=== PATIENT | female | born 1960 | race Caucasian/White ===

== ENCOUNTER 2017-05-18 11:16 | Emergency (ER) | payer BC, OTHER ==
[2017-05-18] MEDS ORDERED: Aspirin 81 MG Tab.Chew PO ONE (11:51)
--- NOTE | 2017-05-18 11:51 | EDM.PDOC ---
ED HPI GENERAL MEDICAL PROBLEM - General Chief Complaint: Respiratory Problem Stated Complaint: SOB/CHEST PAIN Time Seen by Provider: 05/18/17 11:43 Source of Information: Reports: Patient History Limitations: Reports: No Limitations - History of Present Illness INITIAL COMMENTS - FREE TEXT/NARRATIVE: 56-year-old female presents to the ED with reported central chest pressure or squeezing discomfort like a small child sitting on her chest radiating through to her infrascapular area and mid back 2 and half days. Associated dyspnea. She reports she did wake up several times last night with mild dyspnea. She denies cough or sputum production but is just getting over an upper respiratory tract infection. She still has sinus congestion and mild postnasal drip. Appetite has remained poor since she's had upper respiratory tract infection. She has a history of ulcerative colitis and has intermittent diarrhea problems but nothing terrible as of late. Daughter were aware of any definitive fever chills she feels quite warm to palpation today. Her ECG done by triage nurse reveals sinus rhythm at 87/m. There is Q-wave in V1 and V2 and near Q-wave in V3 suggesting an old anteroseptal myocardial infarction. Patient has no history of SC. There is also noted ST segment depression V4 V5 and V6. Therefore ischemia is a concern. She is down to smoking 5-6 cigarettes a day but has a 30- pack-year history. Onset: Gradual Onset Date: 05/16/17 Duration: Day(s): Location: Reports: Chest (Central chest pressure squeezing discomfort rating to to her mid back 2 days.) Quality: Reports: Ache, Pressure Severity: Moderate (Rates her current pressure discomfort as a 5 out of 10.) Improves with: Reports: None Worsens with: Reports: Other (Not necessarily worse with movement.) Context: Denies: Activity, Exercise, Sick Contact, Trauma, Other Associated Symptoms: Reports: Chest Pain, Cough (Occasional cough which appears to be due to ), cough w sputum (postnasal drip.), Loss of Appetite, Malaise, Shortness of Breath, Weakness. 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 Less since she's been recently ill.) Gastrointestinal History: Reports: GERD (Has to use Tums and Rolaids intermittently.) Musculoskeletal History: Reports: Osteoarthritis Social & Family History - Tobacco Use Smoking Status *Q: Current Every Day Smoker Tobacco Use Within Last Twelve Months: Cigarettes Years of Tobacco use: 30 - Living Situation & Occupation Living situation: Reports: Occupation: Unemployed ED ROS GENERAL - Review of Systems Review Of Systems: See Below Constitutional: Reports: Fever, Malaise, Weakness, Fatigue, Decreased Appetite. Denies: Weight Loss Respiratory: Reports: Shortness of Breath, Cough (Occasional cough). Denies: Wheezing, Pleuritic Chest Pain Cardiovascular: Reports: Chest Pain, Dyspnea on Exertion. Denies: Blood Pressure Problem (See history of present illness), Claudication, Edema, Lightheadedness, Orthopnea Endocrine: Reports: Fatigue GI/Abdominal: Reports: Other (Has a history of ulcerative colitis but no severe diarrhea as of recent.) : Reports: No Symptoms Musculoskeletal: Reports: No Symptoms Skin: Reports: No Symptoms Neurological: Reports: No Symptoms Psychiatric: Reports: No Symptoms Hematologic/Lymphatic: Reports: No Symptoms Immunologic: Reports: No Symptoms ED EXAM, GENERAL - Physical Exam Exam: See Below Exam Limited By: No Limitations General Appearance: Alert, WD/WN, Anxious, Mild Distress Eye Exam: Bilateral Eye: Normal Inspection Ears: Normal TMs Throat/Mouth: Normal Inspection, Normal Lips, Normal Teeth, Normal Oropharynx Head: Atraumatic, Normocephalic Neck: Normal Inspection, Supple, Non-Tender, Full Range of Motion. No: Lymphadenopathy (L), Lymphadenopathy (R) Respiratory/Chest: No Respiratory Distress, Lungs Clear, Normal Breath Sounds, No Accessory Muscle Use, Decreased Breath Sounds (Mildly decreased breath sounds to both posterior lung simeon.). No: Rhonchi, Wheezing Cardiovascular: Normal Peripheral Pulses, Regular Rate, Rhythm, No Murmur, No Rub. No: No Edema, No Gallop Peripheral Pulses: 2+: Posterior Tibial (L), Posterior Tibial (R), Dorsalis Pedis (L), Dorsalis Pedis (R) GI/Abdominal: Normal Bowel Sounds, Soft, Non-Tender, No Organomegaly, No Abnormal Bruit, No Mass, Pelvis Stable, Other (No surgical scars) Back Exam: Normal Inspection, Full Range of Motion. No: CVA Tenderness (L), CVA Tenderness (R) Extremities: Normal Inspection, Normal Range of Motion, Non-Tender, No Pedal Edema, Normal Capillary Refill Neurological: Alert, Oriented, CN II-XII Intact, Normal Cognition, Normal Gait Psychiatric: Normal Affect, Normal Mood Skin Exam: Warm, Dry, Intact, Normal Color, No Rash EKG INTERPRETATION EKG Date: 05/18/17 Time: 11:25 Rhythm: NSR Rate (Beats/Min): 87 [place]: Normal P-Wave: Enlarged (Consider possible left atrial hypertrophy.) QRS: Other (Q waves V1 and V2 and near Q-wave in V3 suggesting old anteroseptal myocardial infarction. Patient has no history of this.) ST-T: Depressed (ST segment depression V4 V5 and V6. Not rule out ischemia.) QT: Normal EKG Interpretation Comments: Abnormal ECG. Course - Vital Signs Last Recorded V/S: Last Vital Signs Temp 37.6 C 05/18/17 11:27 Pulse 89 05/18/17 11:27 Resp 16 05/18/17 11:27 BP 140/83 05/18/17 11:27 Pulse Ox 99 05/18/17 13:26 - Orders/Labs/Meds Orders: Active Orders 24 hr Category Date Time Status EKG Documentation Completion [RC] STAT Care 05/18/17 11:52 Active RT Aerosol Therapy [RC] ASDIRECTED Care 05/18/17 13:26 Active Labs: Laboratory Tests 05/18/17 05/18/17 05/18/17 Range/Units 12:04 12:04 12:04 WBC 6.73 (3.98-10.04) K/mm3 RBC 4.33 (3.98-5.22) M/mm3 Hgb 13.0 (11.2-15.7) gm/L Hct 39.3 (34.1-44.9) % MCV 90.8 (79.4-94.8) fl MCH 30.0 (25.6-32.2) pg MCHC 33.1 (32.2-35.5) g/dl RDW Std Deviation 42.7 (36.4-46.3) fL Plt Count 333 (182-369) K/mm3 MPV 9.9 (9.4-12.3) fl Neutrophils % (Manual) 55 (40-60) % Band Neutrophils % 0 (0-10) % Lymphocytes % (Manual) 31 (20-40) % Atypical Lymphs % 0 % Monocytes % (Manual) 12 H (2-10) % Eosinophils % (Manual) 2 (0.7-5.8) % Basophils % (Manual) 0 L (0.1-1.2) Platelet Estimate Adequate RBC Morph Comment Normal PT 10.7 (8.0-13.0) SECONDS INR 1.00 D-Dimer, Quantitative (0.19-0.59) mg/L Sodium 143 (136-145) mEq/L Potassium 3.6 (3.5-5.1) mEq/L Chloride 107 (98-107) mEq/L Carbon Dioxide 23 (21-32) mEq/L Anion Gap 16.6 H (5-15) BUN 20 H (7-18) mg/dL Creatinine 0.8 (0.55-1.02) mg/dL Est Cr Clr Drug Dosing 81.10 mL/min Estimated GFR (MDRD) > 60 (>60) mL/min BUN/Creatinine Ratio 25.0 H (14-18) Glucose 93 (74-106) mg/dL Calcium 9.4 (8.5-10.1) mg/dL Magnesium 2.0 (1.8-2.4) mg/dl Total Bilirubin 0.4 (0.2-1.0) mg/dL AST 21 (15-37) U/L ALT 27 (14-59) U/L Alkaline Phosphatase 65 (46-116) U/L CK-MB (CK-2) 1.5 (0-3.6) ng/ml Troponin I < 0.017 (0.00-0.056) ng/mL C-Reactive Protein < 0.2 (<1.0) mg/dL NT-Pro-B Natriuret Pep (0-125) pg/mL Total Protein 7.1 (6.4-8.2) g/dl Albumin 3.9 (3.4-5.0) g/dl Globulin 3.2 gm/dL Albumin/Globulin Ratio 1.2 (1-2) Urine Color (Yellow) Urine Appearance (Clear) Urine pH (5.0-8.0) Ur Specific [place]ro[place] (1.005-1.030) Urine Protein (Negative) Urine Glucose (UA) (Negative) Urine Ketones (Negative) Urine Occult Blood (Negative) Urine Nitrite (Negative) Urine Bilirubin (Negative) Urine Urobilinogen (0.2-1.0) Ur Leukocyte Esterase (Negative) 05/18/17 05/18/17 05/18/17 Range/Units 12:04 12:04 13:30 WBC (3.98-10.04) K/mm3 RBC (3.98-5.22) M/mm3 Hgb (11.2-15.7) gm/L Hct (34.1-44.9) % MCV (79.4-94.8) fl MCH (25.6-32.2) pg MCHC (32.2-35.5) g/dl RDW Std Deviation (36.4-46.3) fL Plt Count (182-369) K/mm3 MPV (9.4-12.3) fl Neutrophils % (Manual) (40-60) % Band Neutrophils % (0-10) % Lymphocytes % (Manual) (20-40) % Atypical Lymphs % % Monocytes % (Manual) (2-10) % Eosinophils % (Manual) (0.7-5.8) % Basophils % (Manual) (0.1-1.2) Platelet Estimate RBC Morph Comment PT (8.0-13.0) SECONDS INR D-Dimer, Quantitative 0.39 (0.19-0.59) mg/L Sodium (136-145) mEq/L Potassium (3.5-5.1) mEq/L Chloride (98-107) mEq/L Carbon Dioxide (21-32) mEq/L Anion Gap (5-15) BUN (7-18) mg/dL Creatinine (0.55-1.02) mg/dL Est Cr Clr Drug Dosing mL/min Estimated GFR (MDRD) (>60) mL/min BUN/Creatinine Ratio (14-18) Glucose (74-106) mg/dL Calcium (8.5-10.1) mg/dL Magnesium (1.8-2.4) mg/dl Total Bilirubin (0.2-1.0) mg/dL AST (15-37) U/L ALT (14-59) U/L Alkaline Phosphatase (46-116) U/L CK-MB (CK-2) (0-3.6) ng/ml Troponin I (0.00-0.056) ng/mL C-Reactive Protein (<1.0) mg/dL NT-Pro-B Natriuret Pep 191 H (0-125) pg/mL Total Protein (6.4-8.2) g/dl Albumin (3.4-5.0) g/dl Globulin gm/dL Albumin/Globulin Ratio (1-2) Urine Color Yellow (Yellow) Urine Appearance Clear (Clear) Urine pH 7.5 (5.0-8.0) Ur Specific [place] 1.015 (1.005-1.030) Urine Protein Negative (Negative) Urine Glucose (UA) Negative (Negative) Urine Ketones 1+ H (Negative) Urine Occult Blood Negative (Negative) Urine Nitrite Negative (Negative) Urine Bilirubin Negative (Negative) Urine Urobilinogen 0.2 (0.2-1.0) Ur Leukocyte Esterase Negative (Negative) Meds: Medications Discontinued Medications Generic Name Dose Route Start Last Admin Trade Name Freq PRN Reason Stop Dose Admin Albuterol/Ipratropium 3 ml 05/18/17 13:26 05/18/17 14:06 Duoneb 3.0-0.5 Mg/3 Ml NEB 05/18/17 13:27 3 ml ONETIME ONE Administration Aspirin 324 mg 05/18/17 11:51 05/18/17 11:56 Aspirin PO 05/18/17 11:52 324 mg ONETIME ONE Administration Sodium Chloride 1,000 mls @ 125 mls/hr 05/18/17 12:00 05/18/17 12:00 Normal Saline IV 125 mls/hr ASDIRECTED TONO Administration Nitroglycerin/Dextrose 25 mg in 250 mls @ 6 mls/hr 05/18/17 12:00 Nitroglycerin 25 Mg/D5w 250 Ml IV ASDIRECTED TONO 10 MCG/MIN Nitroglycerin/Dextrose 25 mg in 250 mls @ 6 mls/hr 05/18/17 11:57 05/18/17 12 :02 Nitroglycerin 25 Mg/D5w 250 Ml IV 05/20/17 05:36 10 mcg/min ONETIME ONE 6 mls/hr Administration 10 MCG/MIN Methylprednisolone Sodium Succinate 125 mg 05/18/17 13:27 05/18/17 13:51 Solu-Medrol IVPUSH 05/18/17 13:28 125 mg ONETIME ONE Administration - Radiology Interpretation Free Text/Narrative:: 56-year-old female presents to the ED primarily due to central chest discomfort reported to be a heaviness squeeze type discomfort rating to to her infrascapular area in her back 2-3 days. Her ECG done by the triage nurse suggested possible old anteroseptal myocardial infarct for which the patient has no history of. It also suggested ST segment depression V4 to V6 suggestive of possible ischemia. She will therefore be treated as if she is a myocardial infarction until proven otherwise. Given 324 mg of aspirin chewed. Nitro drip at 10 mcg/m. Routine labs to be done to include cardiac markers. - Re-Assessments/Exams Free Text/Narrative Re-Assessment/Exam: 05/18/17: 12:30: Patient states there perhaps is a mild relief of the central chest discomfort on the nitro drip but still rates it as 4 out of 10. 05/18/17 13:20 Labs reveal a white count of 6.73 likely normal. 55% neutrophils no bands reported. Hemoglobin is 13.0 with hematocrit of 39.3. Bili count 333,000. ETT is 10.7 with an INR of 1.00. D-dimer is normal at 0.39. Sodium is 143 with potassium of 3.6. Portable 07 with a bicarbonate of 23. And a gap is mildly elevated at 16.6. B1 is 20 with a creatinine of 0.8. Glucose is 93 with calcium 9.4. Magnesium normal at 2.0. Bilirubin normal at 0.4. Liver function normal CK-MB fraction 1.5 with a troponin I of less than 0.017. C- reactive protein is less than 0.2. BNP is 191 minimally elevated. 05/18/17 13:23 nitro drip will be discontinued since her cardiac markers are normal with a history of chest pain 2 days. I will try her on a DuoNeb treatment to see if this alleviates her discomfort. Ever dose of steroid 125 mg IV mental IV. 05/18/17 14:24 urinalysis is normal as well. Plan will be to discharge her home on antibiotics for suspect sinus infection and bronchitis. Will use Levaquin 500 mg once daily for 10 days. Short course of prednisone 20 mg a.m. and p.m. for 5 days and once in the morning for another 5 days. I suspect her anterior chest discomfort is respiratory or bronchospastic in origin. 05/18/17 14:51 will be discharged with a nebulizer machine to use DuoNeb every 8 hours for the next week to 10 days. Advise follow-up in the clinic in 5 days time. Departure - Departure Time of Disposition: 14:51 Disposition: Home, Self-Care 01 Condition: Fair Clinical Impression: Bronchitis, Non-cardiac chest pain Sinusitis Qualifiers: Sinusitis location: unspecified location Chronicity: acute Recurrence: not specified as recurrent Qualified Code(s): J01.90 - Acute sinusitis, unspecified - Discharge Information Prescriptions: Albuterol/Ipratropium [DuoNeb 3.0-0.5 MG/3 ML] 3 ml .XX Q6H PRN #45 neb PRN Reason: cough/chest heaviness Levofloxacin [Levaquin] 500 mg PO DAILY #10 tab predniSONE [Deltasone] 20 mg PO ASDIRECTED #15 tablet Instructions: Sinusitis, Adult, [id number], Acute Bronchitis, Adult, Easy-to- Read, Nonspecific Chest Pain, [id number] Referrals: PCP,None [Primary Care Provider] - Forms: ED Department Discharge Additional Instructions: Evaluation in the emergency room today in regards to central chest discomfort like a heaviness sitting intermittent chest for the last 2 days. She waited recent upper respiratory tract infection with I suspect residual sinusitis and post nasal drip. Continued cough. Complete workup was carried out as you ECG suggested possibility of an old heart attack. However today's lab work did not show any evidence of heart related illness. It does show mild signs of infection with elevated CRP etc. There is no pneumonia on the chest x-ray. Clinically you have bronchitis and I suspect a component of bronchospasm which means tightness of the major bronchial tubes which is causing her chest discomfort. To this and drip started initially as per protocol for chest pain did not help the pain at all. He did get some relief from nebulizer treatment. Therefore my suggestion for treatment at home is to use the nebulizer every 6-8 hours as needed for relief of chest discomfort and/or wheezing. May use this for the next 7-10 days but then you should be better. Prednisone is 20 mg in the morning and supper time for 5 days then once daily in the morning for another 5 days. Antibiotic is to be Levaquin 500 milligrams once daily for 10 days starting today. Suggest follow-up with personal care physician in 10 days' time you are doing. I also recommend that you arrange to see a tool repairer bench in consultation due to your abnormal appearing ECG. I believe an echocardiogram and likely at the ECG stress test at a minimum are required. I believe Dr. Sagastume-- tool repairer bench is coming out from [facility] in [facility] to the [facility] and possibly you could see him here. - My Orders Last 24 Hours: My Active Orders 05/18/17 11:52 EKG Documentation Completion [RC] STAT 05/18/17 13:26 RT Aerosol Therapy [RC] ASDIRECTED - Assessment/Plan Last 24 Hours: My Active Orders 05/18/17 11:52 EKG Documentation Completion [RC] STAT 05/18/17 13:26 RT Aerosol Therapy [RC] ASDIRECTED
[2017-05-18] MEDS ORDERED: Nitroglycerin/D5W 25 MG/250 ML BOTTLE IV ONE (11:57)
[2017-05-18] MEDS ORDERED: Sodium Chloride 0.9% 1,000 ML IV SCH (12:00)
[2017-05-18] MEDS ORDERED: Nitroglycerin/D5W 25 MG/250 ML BOTTLE IV SCH (12:00)
--- NOTE | 2017-05-18 12:44 | CR ---
Chest: Portable view of the chest was obtained. Comparison: Prior chest x-ray of 09/05/12. Heart size is normal. Tortuous thoracic aorta is seen. Lungs are clear but somewhat hyperinflated. Bony structures are grossly intact. Impression: 1. Probable emphysematous change. Nothing acute is seen on portable chest x-ray. Diagnostic code #2
[2017-05-18] MEDS ORDERED: Albuterol/Ipratropium 3.0-0.5 MG/3 ML Neb Soln NEB ONE (13:26)
[2017-05-18] MEDS ORDERED: methylPREDNISolone Sodium Succinate 125 MG/2 ML SDV IVPUSH ONE (13:27)
== END 2017-05-18 15:23 | disposition home or self-care (01) ==
LOC: JD.ED 11:16
DX: R07.89 Other chest pain (principal); J40 Bronchitis, not specified as acute or chronic; J01.90 Acute sinusitis, unspecified; J44.9 Chronic obstructive pulmonary disease, unspecified; K21.9 Gastro-esophageal reflux disease without esophagitis; M19.90 Unspecified osteoarthritis, unspecified site; F17.210 Nicotine dependence, cigarettes, uncomplicated; Z79.899 Other long term (current) drug therapy
CPT/HCPCS: 36415; 71045; 80053; 81003; 82553; 83735; 83880; 84484; 85025; 85379; 85610; 86140; 93005; 94640; 96365; 96366; 96375; 99285; A9270; J2930; J7040; 93010; 99284-25